=== PATIENT | female | born 1995 | race Two or more races ===

== ENCOUNTER 2024-05-21 02:51 | Emergency (ER) | payer MEDICAID, SELFPAY ==
[2024-05-21 02:52] VITALS: BMI 44.1
[2024-05-21 02:59] VITALS: BP 133/91; PULSE 111; RESP 18; TEMP 37.3; O2SAT 97
--- NOTE | 2024-05-21 03:16 | EDRME_ITS ---
Rapid Medical Screening Exam [facility] Arrival date/time: 05/21/24 02:51 29F with no significant PMH presents to ED with 4 days of fevers/chills and body aches/pain. Mild epigastric pain, but patient denies N/V, diarrhea, constipation, dysuria, vaginal bleeding, and URI symptoms. Chief Complaint: Abdominal Pain Vital signs: Vital Signs Temperature 99.1 F 05/21/24 02:59 Pulse Rate 111 H 05/21/24 02:59 Respiratory Rate 18 05/21/24 02:59 Blood Pressure 133/91 H 05/21/24 02:59 Pulse Oximetry (%) 97 05/21/24 02:59 Oxygen Delivery Method Room Air 05/21/24 02:59
[2024-05-21 03:43] LABS: Lactate (Lactic Acid) 1.1 mMol/L (0.4-2.0)
[2024-05-21 03:49] LABS: Basophils # (Auto) 0.1 Thou/mm3 (0.0-0.2); Basophils % (Auto) 0 % (0-2.5); Eosinophils # (Auto) 0.5 Thou/mm3 (0.0-0.5); Eosinophils % (Auto) 3 % (0-10); Hematocrit 39.9 % (36.0-46.0); Hemoglobin 13.2 g/dL (12.0-16.0); Immature Granulocytes % (Auto) 0 % (0-0); Immature Granulocytes Auto 0.04 Thou/mm3 (0.00-0.00); Lymphocytes # (Auto) 3.4 Thou/mm3 (1.0-4.8); Lymphocytes % (Auto) 25 % (10-50); Mean Corpuscular HGB Conc 33.1 g/dl (31.0-37.0); Mean Corpuscular Hemoglobin 26.9 pg (25.0-35.0); Mean Corpuscular Volume 81 fL (80-100); Monocytes # (Auto) 0.8 Thou/mm3 (0.0-0.8); Monocytes % (Auto) 6 % (0-12); Neutrophils # (Auto) 8.9 Thou/mm3 (1.8-7.7); Neutrophils % (Auto) 65 % (37-80); Nucleated Red Blood Cell % 0 /100 WBC (0); Platelet Count 274 Thou/mm3 (140-440); Red Blood Count 4.91 Miln/mm3 (4.00-5.20); White Blood Count 13.7 Thou/mm3 (3.6-11.0)
[2024-05-21 03:51] LABS: Collection Type, Urine Clean Catch
[2024-05-21 03:53] LABS: HCG Qualitative,Urine Negative
[2024-05-21 04:02] LABS: Amphetamine/Methamp Scrn,U Negative (Negative); Barbiturate Screen,Urine Negative (Negative); Benzodiazepines Screen,Urine Negative (Negative); Benzoylecgonine Screen, Ur Negative (Negative); Fentanyl Screen,Urine Negative (Negative); Opiate Screen,Urine Negative (Negative); THC Screen,Urine Negative (Negative)
[2024-05-21 04:09] LABS: Bilirubin,Urine Negative (Negative); Blood,Urine Negative (Negative); Clarity,Urine Turbid (Clear/Hazy); Color,Urine Yellow (Lt Yel-Yel); Glucose, Urine Negative (Negative); Ketones,Urine 2+ (Negative); Leukocyte Esterase,Urine Positive (Negative); Nitrite,Urine Negative (Negative); Protein,Urine Trace (Neg - Trace); RBC,Urine 6 /hpf (0-3); Squamous Epithelial Cell,Urine 5 /hpf (0-5); Urobilinogen,Urine Negative mg/dL (0.0-1.0); WBC,Urine 8 /hpf (0-5)
[2024-05-21 04:10] LABS: Alanine Aminotransferase 11 U/L (10-49); Albumin, Serum 4.9 gm/dL (3.5-5.0); Albumin/Globulin Ratio 1.6 (1.2-2.2); Alkaline Phosphatase 64 U/L (46-116); Anion Gap 5 (7-16); Aspartate Amino Transferase 10 U/L (0-34); BUN/Creatinine Ratio 8 Ratio (12-20); Bilirubin,Total 0.5 mg/dL (0.3-1.2); Blood Urea Nitrogen 6 mg/dL (9-23); Calcium 9.3 mg/dL (8.3-10.6); Calcium (Corrected) 9.3 mg/dL (8.5-10.1); Carbon Dioxide 22.6 mMol/L (20.0-31.0); Chloride 107 mMol/L (98-107); Creatinine (Component) 0.8 mg/dL (0.6-1.3); Glucose 95 mg/dL (74-106); Lipase 26 U/L (12-53); Osmolality,Calculated 267 (275-295); Potassium 3.6 mMol/L (3.4-5.1); Procalcitonin 0.07 ng/ml (0.0-0.49); Sodium 135 mMol/L (136-145); Total Protein 7.9 gm/dL (5.7-8.2); eGFR > 60 See Note
[2024-05-21 06:02] VITALS: BP 138/75; PULSE 110; RESP 18; TEMP 37.6; O2SAT 99
--- NOTE | 2024-05-21 06:43 | PD.EDADULT ---
ED General RME/HPI General Chief complaint: Abdominal Pain Stated complaint: ABD PAIN, CHILLS Time Seen by Provider: 05/21/24 06:25 Arrival date/time: 05/21/24 02:51 Limitations: no limitations RME / HPI RME / HPI narrative: 05/21/24 02:51 29F with no significant PMH presents to ED with 4 days of fevers/chills and body aches/pain. Mild epigastric pain, but patient denies N/V, diarrhea, constipation, dysuria, vaginal bleeding, and URI symptoms. DR. HAMMOND MAIN ED EVALUATION: 29 year old female presents to the Emergency Department with complaint of bilateral interior thigh cramps intermittently for the last four days. It is intermittent, sporadic, and not associated with movement. She notes decreased appetite, but is tolerating PO for the last four months as she has recently started Ozempic injections. She denies sick contacts, she denies trauma. She notes full body chills when she gets the anterior thigh pain, resolving completely together as well. She denies other flu like symptoms, such as runny nose, cough, or sore throat. She denies nausea, vomiting, or abdominal pain. She denies diarrhea. Related Data Home Medications ?Medication ?Instructions ?Recorded ?Confirmed prenat.vits,opal,hwd-[id number] 1 tab PO QDAY 10/21/22 11/02/22 Previous Rx's ?Medication ?Instructions ?Recorded amoxicillin 875 mg-potassium 1 tab PO BID #20 tabs 06/13/23 clavulanate 125 mg tablet Allergies Allergy/AdvReac Type Severity Reaction Status Date / Time No Known Allergies Allergy Verified 05/21/24 02:55 Review of Systems Review of Systems Systems Reviewed: All systems reviewed, normal except as documented Narrative Review of Systems: GEN: No fever, + chills, no weight loss, + decreased appetite (on Ozempic) EYES: No discharge, no visual changes, no pain HEENT: No ear pain, no congestion, no sore throat PULM: No shortness of breath, no cough, no congestion CV: No chest pain, no dyspnea on exertion, no palpitations GI: No nausea, no vomiting, no diarrhea, no pain, no constipation : No frequency, no urgency and no dysuria MUSC/SKEL: + bilateral interior thigh cramps (see HPI), no back pain SKIN: No rash PSYCH: No hallucinations, no depression HEME/LYMPH: No easy bleeding or bruising tendencies NEURO: No weakness, no headache Past Medical History Past Medical History CARDIAC: Negative Congestive Heart Failure RESPIRATORY: Negative Chronic Obstructive Pulmonary Disease (COPD) GENITOURINARY: Negative Renal Disease ENDOCRINE: Negative Diabetes Mellitus Type 1 or Diabetes Mellitus Type 2 Social History SMOKING STATUS: Never smoker SUBSTANCE USE: does not use ALCOHOL: Never ED Exam General Limitations: Present no limitations General appearance: Present alert and in no apparent distress Head Head exam: Present atraumatic Eye Eye exam: Present normal appearance, PERRL and EOMI ENT ENT exam: Present normal exam, normal oropharynx and mucous membranes moist Neck Neck exam: Present normal inspection, full ROM and trachea midline Chest Chest inspection: Present normal inspection and symmetric chest wall rise Respiratory Respiratory exam: Present normal lung sounds bilaterally Cardiovascular Cardiovascular exam: Present regular rate, normal rhythm and normal heart sounds Abdominal Exam Abdominal exam: Present soft and normal bowel sounds Extremities Exam Extremities exam: Present other (reproducible pain over her anterior thigh with palpation, no pain over the posterior thigh, no masses no redness no discoloration. No pain without palpation distal pulses color intact as well. She's able to ambulate, and jump up and down, without difficulty.) Back Exam Back exam: Present normal inspection and full ROM Neurological Exam Neurological exam: Present alert, oriented X3 and CN II-XII intact Psychiatric Psychiatric exam: Present normal affect and normal mood Skin Skin exam: Present warm, dry, intact and normal color Course Quality Measures none Orders Category Date Time Status Bedside COVID-19 Antigen Test NOW Care 05/21/24 03:15 Completed Bedside Influenza A&B Antigen Test NOW Care 05/21/24 03:15 Completed CBC Stat Lab 05/21/24 03:23 Completed CMP [Comprehensive Metabolic Panel] Stat Lab 05/21/24 03:23 Completed Creatine Kinase Stat Lab 05/21/24 03:23 Completed Drug Screen,Urine Stat Lab 05/21/24 03:47 Completed HCG Qualitative,Urine Stat Lab 05/21/24 03:47 Completed Lactate (Lactic Acid) Stat Lab 05/21/24 03:23 Completed Lipase Stat Lab 05/21/24 03:23 Completed Procalcitonin Stat Lab 05/21/24 03:23 Completed Urinalysis Stat Lab 05/21/24 03:47 Completed Sodium Chloride 0.9% 1000 ml [Ns] 1,000 ml Med 05/21/24 06:42 Discontinued IV 999 mls/hr Reevaluation(s) Reevaluation #1: Heart rate has normalized ranging from 88 to 98 each per minute. She?s remained asymptomatic. Will be discharging her with oral fluids for the next 40 hours in the follow up with her primary care doctor. Patient remains clinically stable throughout the emergency department visit. Re-assessment at the time of disposition demonstrates that the patient is in no acute distress. We reviewed all the results, analysis, and treatment plans. Patient is amenable to discharge. Strict return precautions were outlined. Patient was discharged in stable condition. Time: 07:35 Vital Signs Vital signs: Vital Signs Temperature 99.1 F 05/21/24 02:59 Pulse Rate 111 H 05/21/24 02:59 Respiratory Rate 18 05/21/24 02:59 Blood Pressure 133/91 H 05/21/24 02:59 Pulse Oximetry (%) 97 05/21/24 02:59 Oxygen Delivery Method Room Air 05/21/24 02:[address] [facility] Patient data External records reviewed:: [facility] previous records (Reviewed last ED visit dated 06/13/23, discharged with the following: Otitis externa) Clinical information provided by:: patient Social determinants that could affect healthcare access:: none Patient has the following chronic illnesses:: Obesity on Ozempic injections. No known allergies. How is presenting disease/condition affected by chronic disease/condition?: uneffected by Evaluation data The following diagnostics were reviewed and interpreted by me:: lab results Lab and/or radiology exams considered but not ordered:: none Interpretation Summary: No acute findings. Patient will be discharged with myalgia. Medications Medications considered but not ordered:: none Medication administrations:: Medication Administration History Discontinued Medications Sodium Chloride (Ns) 1,000 mls @ 999 mls/hr IV .Q1H1M ONE Stop: 05/21/24 07:42 Last Admin: 05/21/24 07:33 Dose: Not Given Documented By: ADEOLA Non-Admin Reason: Cancelled by Provider see above Consultations Consultation(s) initiated? (list below): No Diagnosis Differential Diagnosis ED Complaint MDM: Myalgia, muscle strain Most likely diagnosis given after review of the tests above:: Myalgia Admission Indicated Admission indicated?: not indicated Explain why admission is indicated or not indicated:: Patient has no emergent abnormalities on his studies and can be managed on an outpatient basis. Admission Request Was there a request for admission?: No Disposition Plan Disposition Plan: Discharge Discharge Attestation Discharge Attestation: The patient and all family members were given an opportunity to ask questions and understood the discharge instructions. Discharge instructions specifically effects, indications for sooner follow up or return to the emergency department, and the expected course of current diagnosis. Patient condition: Stable Medical Decision Making MDM Narrative MDM Narrative: Melody Matthews, am scribing for and in the presence of Dr. Hammond. Differential Diagnosis Differential Diagnosis: Myalgia, muscle strain Lab Data 05/21/24 03:23 05/21/24 03:23 Labs: Lab Results 05/21/24 05/21/24 Range/Units 03:23 03:47 WBC 13.7 H (3.6-11.0) Thou/mm3 RBC 4.91 (4.00-5.20) Miln/mm3 Hgb 13.2 (12.0-16.0) g/dL Hct 39.9 (36.0-46.0) % MCV 81 (80-100) fL MCH 26.9 (25.0-35.0) pg MCHC 33.1 (31.0-37.0) g/dl RDW Std Deviation 41.0 (36.4-46.3) fL Plt Count 274 (140-440) Thou/mm3 Neut % (Auto) 65 (37-80) % Lymph % (Auto) 25 (10-50) % [place] % (Auto) 6 (0-12) % Eos % (Auto) 3 (0-10) % Baso % (Auto) 0 (0-2.5) % Neut # (Auto) 8.9 H (1.8-7.7) Thou/mm3 Lymph # (Auto) 3.4 (1.0-4.8) Thou/mm3 [place] # (Auto) 0.8 (0.0-0.8) Thou/mm3 Eos # (Auto) 0.5 (0.0-0.5) Thou/mm3 Baso # (Auto) 0.1 (0.0-0.2) Thou/mm3 Immature Gran # (Auto) 0.04 H (0.00-0.00) Thou/mm3 Absolute Nucleated RBC 0.00 (0.00-0.00) Thou/mm3 Immature Gran % 0 (0-0) % Nucleated RBC % 0 (0) /100 WBC Sodium 135 L (136-145) mMol/L Potassium 3.6 (3.4-5.1) mMol/L Chloride 107 (98-107) mMol/L Carbon Dioxide 22.6 (20.0-31.0) mMol/L Anion Gap 5 L (7-16) BUN 6 L (9-23) mg/dL Creatinine 0.8 (0.6-1.3) mg/dL Estim Creat Clear Calc 136.0 (>60) mL/min eGFR > 60 (60 - ) See Note BUN/Creatinine Ratio 8 L (12-20) Ratio Glucose 95 (74-106) mg/dL Calculated Osmolality 267 L (275-295) Lactic Acid 1.1 (0.4-2.0) mMol/L Calcium 9.3 (8.3-10.6) mg/dL Corrected Calcium 9.3 (8.5-10.1) mg/dL Total Bilirubin 0.5 (0.3-1.2) mg/dL AST 10 (0-34) U/L ALT 11 (10-49) U/L Alkaline Phosphatase 64 (46-116) U/L Total Creatine Kinase 131 (34-171) U/L Total Protein 7.9 (5.7-8.2) gm/dL Albumin 4.9 (3.5-5.0) gm/dL Globulin 3.0 (2.3-3.5) gm/dL Albumin/Globulin Ratio 1.6 (1.2-2.2) Lipase 26 (12-53) U/L Procalcitonin 0.07 (0.0-0.49) ng/ml Ur Collection Type Clean Catch Urine Color Yellow (Lt Yel-Yel) Urine Clarity Turbid A (Clear/Hazy) Urine pH 6.0 (5.0-7.0) Ur Specific [place] 1.030 (1.001-1.035) Urine Protein Trace (Neg - Trace) Urine Glucose (UA) Negative (Negative) Urine Ketones 2+ A (Negative) Urine Blood Negative (Negative) Urine Nitrite Negative (Negative) Urine Bilirubin Negative (Negative) Urine Urobilinogen (Auto) Negative (0.0-1.0) mg/dL Ur Leukocyte Esterase Positive (Negative) Urine RBC 6 H (0-3) /hpf Urine WBC 8 H (0-5) /hpf Ur Squamous Epith Cells 5 (0-5) /hpf Urine Bacteria None (None) Urine HCG, Qual Negative Urine Opiates Screen Negative (Negative) Urine Fentanyl Screen Negative (Negative) Ur Barbiturates Screen Negative (Negative) U Amphetamin/Meth Scrn Negative (Negative) U Benzodiazepines Scrn Negative (Negative) U Cocaine Metab Screen Negative (Negative) U Marijuana (THC) Screen Negative (Negative) Discharge Plan Plan Patient Disposition: HOME (Self Care) Prescriptions/Referrals Prescriptions/Med Rec: No Action Vitamin Tablet 1 tab PO QDAY amoxicillin-pot clavulanate 875-125 mg tablet 1 tab PO BID Qty: 20 0RF Referrals: Zhane Valenzuela PA-C [Primary Care Provider] - In 1 week Problem List Clinical Impression: Myalgia Patient/Caregiver Discharge Instructions Education Materials: ED Myalgias Additional Instructions: Mikayla muchos l?quidos arnoldo los pr?ximos 2 d?as/48 horas. Heraclio un seguimiento con castillo m?dico de atenci?n primaria en 2 d?as para volver a controlarlo y raquel? la posibilidad de que esto sea un efecto secundario del Ozempic. Print Language: [place] Stand Alone Forms: [employer]oss[employer] Award Info., Patient Portal Info Letter
[2024-05-21 07:08] LABS: Creatine Kinase 131 U/L (34-171)
--- NOTE | 2024-05-21 07:10 | PC.NURSE ---
Report received from Lona Tavares RN; pt initially c/o abd pain and chills x4 days; pt denies any PMH but is currently taking Ozempic. Pt denying pain/chills at this time. Pt A&Ox4, GCS 15 at this time.
[2024-05-21 07:25] VITALS: BP 122/94; PULSE 94; PULSE 97; RESP 14; TEMP 36.9; O2SAT 100
== END 2024-05-21 08:00 | disposition home or self-care (01) ==
PROVIDERS: Physician Assistant; Emergency Provider Emergency Medicine; PCP Specialist
DX: M79.10 Myalgia, unspecified site (principal)
CPT/HCPCS: 36415; 80053; 80307; 81001; 81025; 82550; 83605; 83690; 84145; 85025; 87400; 87811; 99283